=== PATIENT | female | born 1995 ===

== ENCOUNTER 2017-03-29 18:21 | Emergency (ER) | payer SELFPAY ==
--- NOTE | 2017-03-29 18:36 | NUR ---
Attempted to triage pt, pt was not found in ER waiting room or outside ER.
--- NOTE | 2017-03-29 19:59 | NUR ---
PATIENT WAS CALLED SEVERAL TIMES TO BE TRIAGED. PATIENT WAS NOT PRESENT IN WAITING ROOM. PATIENT WAS NOT SEEN BY SANTI OR STEVE
== END 2017-03-29 20:00 | disposition left against medical advice (07) ==
LOC: ER 18:21
DX: Z53.21 Procedure and treatment not carried out due to patient leaving prior to being seen by health care provider (principal)